=== PATIENT | male | born 1960 | race Caucasian/White ===

== ENCOUNTER → 2020-07-31 | Outpatient (CLI) | payer OTHER ==
[~2020-07-31] MED LIST: ALLO100; AMLO10 PO; AMLO5; ASPI325 PO; ATOR40TA PO; CARV25 PO; CHRO200 PO; CLON.2 PO; CYCL10 PO; Cinnamon500 MG PO; Crestor40 MG PO; DOCU100 PO; FIBE4P; GLIP10 PO; GLIP5 PO; Glucophage1000 MG PO; HYDACE5; INSDET100 SC; Lipofen150 MG; MELO7.5 PO; METF500 PO; METO100ER; MIRALAX17 GM PO; OLME20-12. PO; OXYACE5T PO; One Daily1 EAC3 PO; Percocet 5-3251 EACH PO; Prozac40 MG PO; Saw Palmetto160 MG PO; TAMS.4ER PO; ZESTRIL40 MG PO; Zofran Odt4 MG SL
[2020-07-31 16:12] LABS: Source, Urine Clean Catch
[2020-07-31 16:16] LABS: Appearance, Urine Clear (Clear); Color, Urine Yellow (P-Yellow); Glucose Qualitative, Urine 3+ (Normal); Ketones, Urine 1+ (Neg); Leukocyte Esterase, Urine Neg (Neg); Nitrite, Urine Neg (Neg); Protein, Urine 3+ (Neg); Specific Gravity, Urine 1.015 (1.003-1.022)
[2020-07-31 16:17] LABS: Bilirubin, Urine Neg (Neg); Blood, Urine 2+ (Neg); Urobilinogen, Urine NORM (Normal)
[2020-07-31 16:29] LABS: Bacteria Few /hpf; Squamous Epithelial Cells Few /hpf (Few)
== END | disposition home or self-care (01) ==
LOC: LAB SHORT 16:08 → LAB EV 16:08
PROVIDERS: Family Medicine
DX: R35.0 Frequency of micturition (principal)
CPT/HCPCS: 81001

== ENCOUNTER → 2021-01-28 | Outpatient (CLI) | payer OTHER ==
[2021-01-28 16:17] LABS: Protein, Urine Quantitative 55.4 mg/dL (0.0-11.9)
[2021-01-28 16:54] LABS: Calcium, Urine 6.3 mg/dL (< 17.5)
[2021-01-31 11:10] LABS: M-SPIKE, % Not Observed % (Not Observed); PROTEIN,TOTAL,URINE 42.8 mg/dL (Not Estab.)
== END | disposition home or self-care (01) ==
LOC: LAB SHORT 14:02
PROVIDERS: Internal Medicine
DX: N18.4 Chronic kidney disease, stage 4 (severe) (principal)
CPT/HCPCS: 81050; 82340; 84156; 84166

== ENCOUNTER 2021-03-27 05:54 | Inpatient (IN) | payer OTHER ==
[~2021-03-27] VITALS: Ht 177.8 cm; Wt 90.7 kg
[2021-03-27 06:23] LABS: Hematocrit 22.1 % (37.0-53.0); Hemoglobin 7.5 g/dL (13.5-17.5); Mean Corpuscular HGB 27.9 pg (26.0-34.0); Mean Corpuscular HGB Conc 33.9 g/dL (31.5-36.5); Mean Corpuscular Volume 82 fL (80-100); Mean Platelet Volume 11.6 fL (9.1-12.4); Platelet Count 143 K/mm3 (150-400); RDW Coefficient Variation 13.2 % (11.7-14.2); RDW Standard Deviation 39.8 fL (35.1-46.3); Red Blood Cell Count 2.69 M/mm3 (4.30-5.90); White Blood Cell Count 9.92 K/mm3 (4.00-11.30)
[2021-03-27 06:30] LABS: Calcium, Ionized (POC) 0.72 mmol/L (1.10-1.46); Chloride (POC) 111 mmol/L (98-108); Creatinine (POC) 2.6 mg/dL (0.8-1.3); Glucose (ISTAT POC) 331 mg/dL (70-99); Hemoglobin (POC) 6.8 g/dL (13.5-17.5); Potassium (POC) 4.1 mmol/L (3.5-5.5); Sodium (POC) 138 mmol/L (135-148); Total CO2 (POC) 14 mmol/L (21-32)
[2021-03-27 06:59] LABS: Alanine Aminotransfer (ALT/SGP 35 U/L (12-78); Albumin, Blood 1.2 g/dL (3.4-5.0); Albumin/Globulin Ratio 0.3 (0.8-1.8); Alk Phos 64 U/L (50-136); Anion Gap 11 mmol/L (6-16); Aspartate Aminotrans (AST/SGOT 65 U/L (12-37); Bilirubin, Total 0.5 mg/dL (0.1-1.0); Blood Urea Nitrogen 40 mg/dL (8-24); Bun/Creatinine Ratio 16.2 (12.0-20.0); CHOL/HDL RATIO 3.7; CO2, Blood 15 mmol/L (21-32); Calcium, Blood 6.7 mg/dL (8.5-10.1); Chloride, Blood 114 mmol/L (98-108); Cholesterol 93 mg/dL (50-200); Creatinine, Blood 2.47 mg/dL (0.60-1.20); Globulin, Blood 3.8 g/dL (2.2-4.0); Glomerular Filtration Rate 27 (60-); Glucose, Blood 331 mg/dL (70-99); HDL Cholesterol 25 mg/dL (>39); LDL/HDL RATIO 2.1; Low Density Lipoprotein Chol 51 mg/dL (0-110); Magnesium, Blood 1.9 mg/dL (1.6-2.4); Potassium, Blood 4.1 mmol/L (3.5-5.5); Sodium, Blood 140 mmol/L (136-145); Triglycerides 83 mg/dL (30-160); Very Low Density Lipoprot Chol 16 mg/dL (6-32)
[2021-03-27 07:06] LABS: PCO2 Arterial 25.2 mmHg (35-45); PO2 Arterial 300 mmHg (80-100); pH Blood Arterial 7.36 (7.35-7.45)
[2021-03-27 09:38] LABS: SARS-Cov-2 (COVID-19) PCR, MMC NEGATIVE (NEGATIVE)
--- NOTE | 2021-03-27 10:25 | NUR ---
PT TO RECOVERY ROOM POST PROCEDURE. PT INTUBATED AND SEDATED ON PROPOFOL AT 70 MCG/KG/MIN, CPOT 1. MONITOR SB WITH ST CHANGES 50'S, B/P 135/83, AFEBRILE, FC DRAINING YELLOW URINE. PT ON THE VENT AC-18, TV 475, FIO2 75, PEEP 5; RARELY OVERBREATHING THE VENT SPO2 98-100%, LUNGS CLR, MIN ET SECRETIONS. R GROIN TEMP PACER IN PLACE WITH RATE 50, MA 3,MV-RARELY PACING, TEGADERM DRSG INTACT. R GROIN ACCESS SITE NO SWELLING/HEMATOMA, TIGIST AND TEGADERM DRSG INTACT-SM AMT DRAINAGE ON TIGIST-MAPPED, RLE PULSES 1+ DP, 2+ PT. PT HAS OG TUBE IN PLACE, CLAMPED.
--- NOTE | 2021-03-27 11:35 | NUR ---
PT WITH SMALL OOZE TO R GROIN, NO SWELLING/HEMATOMA, MANUAL PRESSURE X 10 MIN AND FEMSTOP PLACED PER DR NEGRETE WITH 60 MMHG.
--- NOTE | 2021-03-27 11:47 | NUR ---
1100 PATEINT'S MOTHER BROUGHT TO THE BEDSIDE AND MET WITH DR. NEGRETE, ALL QUESTIONS ANSWERED. PATIENT IS BEING HELD IN THE [facility] PENDING TRANSFER TO [facility] IN [place].
--- NOTE | 2021-03-27 11:50 | NUR ---
REPORT CALLED TO Leodan WINSLOW RN AT [facility] IN [place]; ALL QUESTIONS ANSWERED. TRANSPORT ETA IS 1225. PT'S MOTHER AT BEDSIDE, ATTENTIVE.
--- NOTE | 2021-03-27 12:40 | NUR ---
TRANSPORT TEAM ARRIVED, REPORT GIVEN AND SITES REVIEWED, ALL QUESTIONS ANSWERED.
--- NOTE | 2021-03-27 12:45 | NUR ---
1ST UNIT OF [facility] COMPLETE WITHOUT S/S OF RXN; 2ND UNIT SENT WITH TRANSPORT CREW PER DR NEGRETE'S REQUEST.
--- NOTE | 2021-03-27 12:56 | NUR ---
PT LEFT FACILITY WITH TRANSPORT TEAM, CONDITION CRITICAL. [facility] [place] NOTIFIED WITH UPDATED ETA.
== END 2021-03-27 14:37 | disposition short-term general hospital (02) | DRG 246 ==
LOC: ER 05:54 → ICUW 06:25
PROVIDERS: Emergency Medicine; ADMIT Internal Medicine Cardiovascular Disease
PROC: 0BH18EZ Insertion of Endotracheal Airway into Trachea, Via Natural or Artificial Opening Endoscopic (ICD-10-PCS; principal; 2021-03-27)
PROC: 027037Z Dilation of Coronary Artery, One Artery with Four or More Drug-eluting Intraluminal Devices, Percutaneous Approach (ICD-10-PCS; 2021-03-27)
PROC: 4A023N7 Measurement of Cardiac Sampling and Pressure, Left Heart, Percutaneous Approach (ICD-10-PCS; 2021-03-27)
PROC: B2111ZZ Fluoroscopy of Multiple Coronary Arteries using Low Osmolar Contrast (ICD-10-PCS; 2021-03-27)
PROC: 5A1223Z Performance of Cardiac Pacing, Continuous (ICD-10-PCS; 2021-03-27)
PROC: 5A1935Z Respiratory Ventilation, Less than 24 Consecutive Hours (ICD-10-PCS; 2021-03-27)
DX: I21.19 ST elevation (STEMI) myocardial infarction involving other coronary artery of inferior wall (principal); R57.0 Cardiogenic shock; I69.351 Hemiplegia and hemiparesis following cerebral infarction affecting right dominant side; Z20.822 Contact with and (suspected) exposure to COVID-19; E78.00 Pure hypercholesterolemia, unspecified; G40.909 Epilepsy, unspecified, not intractable, without status epilepticus; I12.9 Hypertensive chronic kidney disease with stage 1 through stage 4 chronic kidney disease, or unspecified chronic kidney disease; N18.9 Chronic kidney disease, unspecified; R06.03 Acute respiratory distress; E11.22 Type 2 diabetes mellitus with diabetic chronic kidney disease; Z90.49 Acquired absence of other specified parts of digestive tract; Z79.4 Long term (current) use of insulin; Z79.899 Other long term (current) drug therapy
CPT/HCPCS: 31500; 36415; 36430; 36600; 51702; 71045; 76937; 80047; 80053; 80061; 82803; 83735; 84484; 85014; 85027; 85347; 86850; 86900; 86901; 86920; 92953; 93005; 93010; 93458; 94002; 96374-59; 96375-59; 96376-59; 99152; 99153; 99291-25; A9270; C1725; C1753; C1760; C1769; C1874; C1887; C1894; C8929; C9606; J0171; J0330; J0461; J1265; J1644; J1815; J2370; J2405; J2704; J3010; J3246; J7030; J7040; J7050; J7060; P9016; Q9957; Q9967; U0004